=== PATIENT | male | born 1940 | race Caucasian/White ===

== ENCOUNTER → 2017-08-17 | Outpatient (CLI) | payer OTHER ==
[~2017-08-17] MED LIST: ADULT LOW DOSE81 MG PO; CRESTOR5 MG PO; DIOVAN HCT 80-1 EACH PO; FISH OIL 1,001000 MG PO; NIACIN; VITAMIN D400 UNI1 PO; ZOFRAN ODT4 MG PO
--- NOTE | 2017-08-19 11:06 | PF ---
[address] [address] PULMONARY FUNCTION REPORT Name: MICKIE GUTIERREZ Room: [facility]#: [id number] Admission: 08/17/17 Attend Phys: Axel Avendano MD Discharge: Date of : 38 Report #: [id number] THIS REPORT FOR: //name// CC: Axel Avendano REFERRING PHYSICIAN: Axel Avendano MD TYPE OF STUDY: Pulmonary function test. SPIROMETRY: The FEV1/FVC ratio was 81%. The FEV1 was 3.75 liter at 103% of predicted. FVC was 4.51 at 90% predicted. No positive bronchodilator response. LUNG VOLUMES: Total lung capacity was 89% predicted. Residual volume was 78% predicted. DLCO was 80% predicted. IMPRESSION: The above pulmonary function test does not show evidence for obstructive or restrictive defect with normal DLCO. <ELECTRONICALLY SIGNED> By: Pierre Rainey MD 08/19/17 1106 [id number] Griggs MD /nt
== END ==
LOC: M.PUL 10:49
DX: R06.02 Shortness of breath (principal); R05 Cough